=== PATIENT | male | born 1960 | race Caucasian/White ===

== ENCOUNTER 2020-04-16 00:46 | Inpatient (IN) | payer BC, SELFPAY ==
[~2020-04-16] VITALS: Ht 170.2 cm; Wt 84.4 kg
[2020-04-16 00:50] VITALS: Ht 170.2 cm; Wt 84.4 kg
[2020-04-16 01:55] LABS: BASOPHIL % 1.5 % (0.2-1.5)
[2020-04-16 01:58] LABS: PLATELET COUNT 416 x10^3mcL (152-348); RED CELL DISTRIBUTION WIDTH 16.5 % (12.1-16.2)
[2020-04-16 01:59] LABS: rbc morphology (normal/abnorm) NORMAL (NORMAL)
[2020-04-16 02:17] LABS: CALCIUM 8.4 mg/dL (8.5-10.1); CARBON DIOXIDE 25.1 mmol/L (21-32); CREATININE SERUM 1.4 mg/dL (0.7-1.3)
[2020-04-16 02:21] LABS: BILIRUBIN TOTAL 0.4 mg/dL (0.20-1.00); TOTAL PROTEIN, SERUM 6.3 g/dL (6.4-8.2)
[2020-04-16 02:27] LABS: ALBUMIN 2.3 g/dL (3.4-5.0)
[2020-04-16 02:38] LABS: C REACTIVE PROTEIN 13.8 mg/dL (<=0.9)
[2020-04-16 07:44] LABS: microscopic required? YES; urine erythrocyte TRACE (NEGATIVE)
[2020-04-16 08:06] LABS: AMPHETAMINE QUAL UR NONE DETECTED (See below)
[2020-04-16 12:16] LABS: MAGNESIUM 1.8 mg/dL (1.8-2.4); PHOSPHOROUS 3.5 mg/dL (2.5-4.9)
[2020-04-16 12:21] LABS: CHOLESTEROL/HDL RATIO 2.9
[2020-04-16 20:03] LABS: BASOPHIL % 0.6 % (0.2-1.5)
[2020-04-16 20:12] LABS: PLATELET COUNT 415 x10^3mcL (152-348); RED CELL DISTRIBUTION WIDTH 16.7 % (12.1-16.2)
[2020-04-16 20:13] LABS: rbc morphology (normal/abnorm) NORMAL (NORMAL)
[2020-04-18 04:22] LABS: CARBON DIOXIDE 17.2 mmol/L (21-32); CHLORIDE SERUM 118 mmol/L (98-107); CREATININE SERUM 0.9 mg/dL (0.7-1.3); GFR1 > 60 mL/min; GLUCOSE SERUM 164 mg/dL (74-106); SODIUM SERUM 145 mmol/L (136-145)
[2020-04-18 04:26] LABS: CALCIUM 5.7 mg/dL (8.5-10.1)
[2020-04-18 04:43] LABS: PLATELET COUNT 151 x10^3mcL (152-348)
[2020-04-18 04:46] LABS: BASOPHIL % 2.5 % (0.2-1.5); RED CELL DISTRIBUTION WIDTH 16.5 % (12.1-16.2)
[2020-04-18 04:47] LABS: rbc morphology (normal/abnorm) NORMAL (NORMAL)
[2020-04-18] MEDS ORDERED: ASPIR 8181 MG PO (21:12)
[2020-04-18] MEDS ORDERED: ARGINAID EXTRA (21:12)
[2020-04-18] MEDS ORDERED: [UNRECOGNIZED DRUG - OTHER] (21:12)
[2020-04-18] MEDS ORDERED: DULCOLAX10 M1 (21:13)
[2020-04-18] MEDS ORDERED: ATORVASTATIN CA10 M1 PO (21:13)
[2020-04-18] MEDS ORDERED: GLUCAGON EMERGEN1 MG IJ (21:14)
[2020-04-18] MEDS ORDERED: ELIQUIS5 MG PO (21:14)
[2020-04-18] MEDS ORDERED: GLIPIZIDE XL5 M2 PO (21:14)
[2020-04-18] MEDS ORDERED: GLUCOSE PO (21:15)
[2020-04-18] MEDS ORDERED: HUMALOG100 U/ML SC (21:15)
[2020-04-18] MEDS ORDERED: FORTAMET1000 MG PO (21:16)
[2020-04-18] MEDS ORDERED: LOPRESSOR50 M1 PO (21:17)
[2020-04-18] MEDS ORDERED: NIFEDIPINE ER60 M1 PO (21:17)
[2020-04-18] MEDS ORDERED: ONE DAILY PLUS1 EAC1 (21:18)
[2020-04-18] MEDS ORDERED: PRO40 PO (21:18)
[2020-04-18] MEDS ORDERED: ZINC SULFATE220 M2 PO (21:19)
[2020-04-18] MEDS ORDERED: APAP325 MG PO (21:19)
[2020-04-19 01:03] VITALS: BP 119/95
[2020-04-19 05:54] VITALS: BP 107/56
[2020-04-19 08:00] LABS: BASOPHIL % 0.3 % (0.2-1.5); PLATELET COUNT 322 x10^3mcL (152-348)
[2020-04-19 08:14] LABS: RED CELL DISTRIBUTION WIDTH 16.3 % (12.1-16.2)
[2020-04-19 08:30] LABS: CALCIUM 8.9 mg/dL (8.5-10.1); CARBON DIOXIDE 26.3 mmol/L (21-32); CHLORIDE SERUM 108 mmol/L (98-107); CREATININE SERUM 1.3 mg/dL (0.7-1.3); GFR1 > 60 mL/min; GLUCOSE SERUM 118 mg/dL (74-106); SODIUM SERUM 142 mmol/L (136-145)
[2020-04-19 08:37] VITALS: BP 118/54
[2020-04-19 12:00] VITALS: BP 140/75
[2020-04-19 13:06] LABS: rbc morphology (normal/abnorm) ABNORMAL (NORMAL)
[2020-04-19 20:04] VITALS: BP 153/86
[2020-04-20] VITALS (8 sets, daily range): BP systolic 119–143; BP diastolic 55–82
[2020-04-21] VITALS (10 sets, daily range): BP systolic 108–133; BP diastolic 62–72
[2020-04-21] MEDS ORDERED: LEVAQUIN750 MG PO (16:37)
[2020-04-21] MEDS ORDERED: IPRATROPIUM BROM3 M2 HHN (16:37)
[2020-04-21] MEDS ORDERED: MUCINEX600 MG PO (16:37)
== END 2020-04-21 21:12 | DRG 193 ==
LOC: ED 00:46 → DU 03:42
PROVIDERS: Specialist; ADMIT Family Medicine; ATTEND Family Medicine
DX: J18.9 Pneumonia, unspecified organism (principal); J96.01 Acute respiratory failure with hypoxia; N17.0 Acute kidney failure with tubular necrosis; J93.9 Pneumothorax, unspecified; E11.649 Type 2 diabetes mellitus with hypoglycemia without coma; D64.9 Anemia, unspecified; Z86.73 Personal history of transient ischemic attack (TIA), and cerebral infarction without residual deficits; Z88.3 Allergy status to other anti-infective agents; Z20.822 Contact with and (suspected) exposure to COVID-19; I25.2 Old myocardial infarction; I10 Essential (primary) hypertension; E78.5 Hyperlipidemia, unspecified
CPT/HCPCS: 36600; 82962; 83880; 85378; 87804; G0378; J0456; J0696; J1100; J1644; J1650; J1815; J2543; J3490; J3535; J7030; J7050; J7060; U0003